=== PATIENT | male | born 1940 | race Caucasian/White ===

== ENCOUNTER 2020-03-06 10:36 | Outpatient (REF) | payer OTHER, SELFPAY ==
[2020-03-06 11:59] LABS: MANUAL DIFF FLAG NO
[2020-03-06 12:10] LABS: Basophils Absolute Auto 0.1 X10*3/uL (0.0-0.2); Basophils Percent Auto 0.9 % (0-2); Eosinophils Absolute Auto 0.1 X10*3/uL (0.0-0.4); Eosinophils Percent Auto 1.8 % (0-4); Hematocrit 43.4 % (42-52); Hemoglobin 14.2 g/dl (14.0-18.0); Imm Gran Abs Auto 0.02 X10*3/uL (0.00-0.03); Imm Gran Pct Auto 0.3 % (0.0-0.4); Lymphocytes Absolute Auto 1.5 X10*3/uL (1.2-4.9); Lymphocytes Percent Auto 23.6 % (20-40); Mean Corpuscular HGB Conc 32.7 g/dl (31.0-36.0); Mean Corpuscular Volume 94.8 fL (80-98); Monocytes Absolute Auto 0.4 X10*3/uL (0.1-1.2); Monocytes Percent Auto 6.1 % (2-11); Neutrophils Absolute Auto 4.4 X10*3/uL (2.0-8.3); Neutrophils Percent Auto 67.3 % (45-73); Platelet Count 341 X10*3/uL (160-400); Red Blood Count 4.58 X10*6/uL (4.60-5.80); Red Cell Distribution Width 12.8 % (11.0-16.0); White Blood Count 6.5 X10*3/uL (4.8-10.8)
[2020-03-06 12:57] LABS: Alanine Aminotransferase 20 U/L (0-40); Albumin Level 4.2 g/dL (3.5-5.0); Alkaline Phosphatase 119 U/L (39-117); Anion Gap 13 (12-20); Aspartate Amino Transferase 30 U/L (5-37); Blood Urea Nitrogen 15 mg/dL (9-16); Calcium 9.4 mg/dL (8.4-10.2); Carbon Dioxide 26 mmol/L (22-29); Chloride 106 mmol/L (96-108); Cholesterol 178 mg/dL; Estimated Glomerular Filt Rate > 60; Glucose Fasting 86 mg/dL (60-99); HDL Cholesterol 46 mg/dL; Potassium 4.4 mmol/l (3.3-5.1); Sodium 141 mmol/L (135-145); Total Protein 7.2 g/dL (6.5-8.0)
[2020-03-06 13:04] LABS: Folate 14.3 ng/mL (> or = 4.0); Vitamin B12 548 pg/mL (200-900)
[2020-03-06 13:07] LABS: LDL Cholesterol Calculated 99 mg/dl; Triglycerides 165 mg/dL
[2020-03-06 13:10] LABS: T4 Thyroxine 8.7 ug/dL (4.5-12.0); Thyroid Stimulating Hormone 1.77 mIU/mL (0.32-4.0)
== END 2020-03-06 10:37 | disposition home or self-care (01) ==
LOC: HO.LAB 10:36
PROVIDERS: PCP Internal Medicine; Visit Provider Internal Medicine
DX: Z00.00 Encounter for general adult medical examination without abnormal findings (principal); I10 Essential (primary) hypertension; E78.00 Pure hypercholesterolemia, unspecified; F41.9 Anxiety disorder, unspecified
CPT/HCPCS: 36415; 80053; 80061; 82607; 82746; 84436; 84443; 85025

== ENCOUNTER 2021-02-18 12:10 | Outpatient (REF) | payer OTHER, SELFPAY ==
[2021-02-18 12:28] LABS: MANUAL DIFF FLAG NO
[2021-02-18 12:54] LABS: Basophils Percent Auto 0.6 % (0-2); Eosinophils Absolute Auto 0.1 X10*3/uL (0.0-0.4); Eosinophils Percent Auto 1.9 % (0-4); Hematocrit 41.9 % (42-52); Hemoglobin 14.6 g/dl (14.0-18.0); Imm Gran Abs Auto 0.01 X10*3/uL (0.00-0.03); Imm Gran Pct Auto 0.2 % (0.0-0.4); Lymphocytes Absolute Auto 1.6 X10*3/uL (1.2-4.9); Lymphocytes Percent Auto 24.3 % (20-40); Mean Corpuscular HGB Conc 34.8 g/dl (31.0-36.0); Mean Corpuscular Hemoglobin 32.4 pg (27.0-33.0); Mean Corpuscular Volume 92.9 fL (80-98); Mean Platelet Volume 9.8 fL (9.4-12.4); Monocytes Absolute Auto 0.6 X10*3/uL (0.1-1.2); Monocytes Percent Auto 8.6 % (2-11); Neutrophils Absolute Auto 4.2 X10*3/uL (2.0-8.3); Neutrophils Percent Auto 64.4 % (45-73); Platelet Count 328 X10*3/uL (160-400); Red Blood Count 4.51 X10*6/uL (4.60-5.80); Red Cell Distribution Width 12.8 % (11.0-16.0); White Blood Count 6.4 X10*3/uL (4.8-10.8)
[2021-02-18 13:17] LABS: Alanine Aminotransferase 20 U/L (0-40); Albumin Level 4.3 g/dL (3.5-5.0); Alkaline Phosphatase 105 U/L (39-117); Anion Gap 12 (12-20); Aspartate Amino Transferase 28 U/L (5-37); Bilirubin Total 1.1 mg/dL (0.0-1.0); Blood Urea Nitrogen 14 mg/dL (9-16); Calcium 9.4 mg/dL (8.4-10.2); Carbon Dioxide 23 mmol/L (22-29); Chloride 108 mmol/L (96-108); Cholesterol 161 mg/dL; Estimated Glomerular Filt Rate > 60; Glucose Random 92 mg/dL (60-115); HDL Cholesterol 48 mg/dL; LDL Cholesterol Calculated 87 mg/dl; Potassium 4.4 mmol/L (3.3-5.1); Sodium 139 mmol/L (135-145); Total Protein 6.9 g/dL (6.5-8.0); Triglycerides 133 mg/dL
[2021-02-18 13:38] LABS: Free T4 (Free Thyroxine) 0.97 ng/dL (0.71-1.85); Thyroid Stimulating Hormone 1.81 uIU/mL (0.32-4.0)
[2021-02-18 14:02] LABS: Folate > 20.0 ng/mL (> or = 4.0); Vitamin B12 456 pg/mL (200-900)
== END 2021-02-18 12:11 | disposition home or self-care (01) ==
LOC: HO.LAB 12:10
PROVIDERS: Visit Provider Internal Medicine
DX: E78.00 Pure hypercholesterolemia, unspecified (principal); I10 Essential (primary) hypertension
CPT/HCPCS: 36415; 80053; 80061; 82607; 82746; 84439; 84443; 85025

== ENCOUNTER 2022-02-25 12:29 | Outpatient (REF) | payer OTHER, SELFPAY ==
[2022-02-25 13:52] LABS: Influenza A PCR NEGATIVE (Negative); Influenza B PCR NEGATIVE (Negative); Resp Syncy Virus RNA Qual PCR NEGATIVE (Negative); SARS COV2 PCR INHOUSE POSITIVE (Negative)
== END 2022-02-25 12:30 | disposition home or self-care (01) ==
LOC: HO.LAB 12:29
PROVIDERS: Visit Provider Internal Medicine
DX: R05.9 Cough, unspecified (principal); Z20.822 Contact with and (suspected) exposure to COVID-19
CPT/HCPCS: 0241U

== ENCOUNTER 2022-03-10 12:44 | Outpatient (REF) | payer OTHER, SELFPAY ==
--- NOTE | ~2022-03-10 | XR_ITS ---
EXAMINATION: XR SHOULDER, RIGHT CLINICAL INFORMATION: Pain COMPARISON: None TECHNIQUE: AP external rotation, Grashey, scapular Y, and axillary views of the right shoulder. FINDINGS: No fracture or dislocation. Arthritis at the glenohumeral and acromioclavicular joints with joint space narrowing and osteophyte formation. Normal soft tissues. XR/XR shoulder RT min 2V IMPRESSION: Arthritis.
--- NOTE | ~2022-03-10 | XR_ITS ---
EXAMINATION: XR LUMBOSACRAL SPINE CLINICAL INFORMATION: Pain COMPARISON: Previous x-ray from 2016 TECHNIQUE: Three views of the lumbosacral spine. FINDINGS: There is curvature of the lumbar sacral spine to the left. Bone alignment is otherwise normal. No fracture or dislocation. Multilevel degenerative disc disease and spondylosis greatest at L4-L5 and L5-S1. Lower lumbar spine facet arthritis. XR/XR lumbar spine 2-3V IMPRESSION: Scoliosis and degenerative changes.
== END 2022-03-10 12:45 | disposition home or self-care (01) ==
LOC: HO.XRAY 12:44
PROVIDERS: PCP Internal Medicine; Visit Provider Internal Medicine
DX: M25.511 Pain in right shoulder (principal); M54.50 Low back pain, unspecified; R05.9 Cough, unspecified
CPT/HCPCS: 72100; 73030

== ENCOUNTER 2022-04-06 16:00 | Outpatient (RCR) | payer OTHER, SELFPAY ==
--- NOTE | 2022-03-27 13:30 | MHC.PT.EP ---
[facility] [place] Office [place] [facility] [place] [facility] [address] Antoinette Brandt [address] [phone] F: [phone] F: [phone] F: [phone] F: [phone] Physical Therapy Plan of Care Date of Evaluation: Date of Surgery: N/A Diagnosis: low back pain (RC) Assessment: pt is a 81 y/o male presenting to physical therapy w/ referring diagnosis of low back pain, unspecified. Impairments include pain, decreased range of motion, decreased strength, impaired functional mobility, impaired postural awareness, and altered ambulation mechanics. pt is a good candidate for skilled PT due to age, potential remediation of impairments, typical disease/condition progression and prognosis, comorbidities, and motivation. pt would benefit from skilled PT intervention to provide a tailored strengthening and stretching exercise program, functional training, gait training, postural re-training, neuromuscular re-education, modalities as needed for pain, equipment safety demonstration. Frequency and Duration: The patient will be seen 2x/wk for 4 wks Short Term Goals: pt will be I w/ HEP to promote self-management of condition. pt will improve lumbar flexion by 25% to promote ease in lower body dressing. Penitentiary Goals: pt will report a statistically significant improvement in self-reported outcome measure, James, to promote return to PLOF. pt will improve R hip flexion strength to at least 4/5 to promote ease in navigating stairs and curbs. Treatment Plan: Modalities to reduce pain, spasms and effusion. Manual therapy to restore motion and function. Therapeutic exercise to improve strength and flexibility. Neuromuscular re-education for posture and balance. Therapeutic activities to return to functional activities of daily living. Electronically signed by: Yanely Lugo PT, DPT Please sign and return to therapist. Thank you for your referral.
--- NOTE | 2022-04-22 18:02 | MHC.PT.DC ---
[facility] [place] Office [place] Office [place] [facility] [address] Antoinette Brandt [address] [phone] F: [phone] F: [phone] F: [phone] F: [phone] Physical Therapy Discharge Report Diagnosis: low back pain (RC) Date of Surgery: N/A Date of Evaluation: 03/25/22 Date of Discharge: 04/22/22 Treatments to Date: 3 Cancellations to Date: 3 No Shows to Date: 0 Discharge Status: Independent with HEP Patient Elected to Stop Discharge Summary: The patient called to discharge himself as he does not feel comfortable driving himself to PT in the winter weather. He stated he feel confident with his ability to do his home exercise program by himself and feels they are adequate in managing his pain when he is compliant with them. He is discharged from this physical therapy plan of care per his request. Electronically signed by: Yanely Lugo PT, DPT Please sign and return to therapist. Thank you for your referral.
== END 2022-04-22 18:02 | disposition home or self-care (01) ==
LOC: HO.PT 16:00
PROVIDERS: PCP Internal Medicine; Visit Provider Internal Medicine
DX: M54.50 Low back pain, unspecified (principal)
CPT/HCPCS: 97110; 97162

== ENCOUNTER 2022-05-27 10:26 | Outpatient (REF) | payer OTHER, SELFPAY ==
[2022-05-27 10:53] LABS: MANUAL DIFF FLAG NO
[2022-05-27 11:27] LABS: Basophils Absolute Auto 0.1 X10*3/uL (0.0-0.2); Basophils Percent Auto 0.8 % (0-2); Eosinophils Absolute Auto 0.2 X10*3/uL (0.0-0.4); Eosinophils Percent Auto 1.9 % (0-4); Hemoglobin 14.5 g/dl (14.0-18.0); Imm Gran Abs Auto 0.03 X10*3/uL (0.00-0.03); Imm Gran Pct Auto 0.4 % (0.0-0.4); Lymphocytes Absolute Auto 1.8 X10*3/uL (1.2-4.9); Lymphocytes Percent Auto 22.7 % (20-40); Mean Corpuscular HGB Conc 33.7 g/dl (31.0-36.0); Mean Corpuscular Volume 94.9 fL (80.0-98.0); Mean Platelet Volume 9.8 fL (9.4-12.4); Monocytes Absolute Auto 0.6 X10*3/uL (0.1-1.2); Monocytes Percent Auto 7.9 % (2-11); Neutrophils Absolute Auto 5.2 x10*3/uL (2.0-8.3); Neutrophils Percent Auto 66.3 % (45-73); Platelet Count 370 X10*3/uL (160-400); Red Blood Count 4.53 X10*6/uL (4.60-5.80); Red Cell Distribution Width 13.4 % (11.0-16.0); White Blood Count 7.8 X10*3/uL (4.8-10.8)
[2022-05-27 12:17] LABS: Alanine Aminotransferase 36 U/L (0-40); Albumin Level 4.6 g/dL (3.5-5.0); Alkaline Phosphatase 133 U/L (39-117); Anion Gap 12 (12-20); Aspartate Amino Transferase 37 U/L (5-37); Bilirubin Total 1.1 mg/dL (0.0-1.0); Blood Urea Nitrogen 17 mg/dL (9-16); Carbon Dioxide 25 mmol/L (22-29); Chloride 108 mmol/L (96-108); Cholesterol 189 mg/dL; Estimated Glomerular Filt Rate > 60; Free T4 (Free Thyroxine) 1.35 ng/dL (0.71-1.85); Glucose Random 96 mg/dL (60-115); HDL Cholesterol 46 mg/dL; LDL Cholesterol Calculated 109 mg/dl; Potassium 4.4 mmol/L (3.3-5.1); Sodium 141 mmol/L (135-145); Total Protein 7.5 g/dL (6.5-8.0); Triglycerides 170 mg/dL
[2022-05-27 12:40] LABS: Folate > 20.0 ng/mL (> or = 4.0); Vitamin B12 562 pg/mL (200-900)
== END 2022-05-27 10:27 | disposition home or self-care (01) ==
LOC: HO.LAB 10:26
PROVIDERS: PCP Internal Medicine; Visit Provider Internal Medicine
DX: E78.00 Pure hypercholesterolemia, unspecified (principal); I10 Essential (primary) hypertension
CPT/HCPCS: 36415; 80053; 80061; 82607; 82746; 84439; 84443; 85025

== ENCOUNTER 2022-10-17 09:00 | Outpatient (REF) | payer OTHER, SELFPAY ==
[2022-10-17 09:17] LABS: MANUAL DIFF FLAG NO
[2022-10-17 10:12] LABS: Basophils Absolute Auto 0.1 X10*3/uL (0.0-0.2); Basophils Percent Auto 0.4 % (0-2); Eosinophils Percent Auto 0.1 % (0-4); Hematocrit 40.4 % (42.0-52.0); Hemoglobin 13.8 g/dl (14.0-18.0); Imm Gran Abs Auto 0.05 X10*3/uL (0.00-0.03); Imm Gran Pct Auto 0.4 % (0.0-0.4); Lymphocytes Absolute Auto 1.4 X10*3/uL (1.2-4.9); Mean Corpuscular HGB Conc 34.2 g/dl (31.0-36.0); Mean Corpuscular Hemoglobin 32.2 pg (27.0-33.0); Mean Corpuscular Volume 94.4 fL (80.0-98.0); Mean Platelet Volume 10.2 fL (9.4-12.4); Monocytes Absolute Auto 1.3 X10*3/uL (0.1-1.2); Monocytes Percent Auto 9.9 % (2-11); Neutrophils Absolute Auto 10.2 x10*3/uL (2.0-8.3); Neutrophils Percent Auto 78.2 % (45-73); Platelet Count 373 X10*3/uL (160-400); Red Blood Count 4.28 X10*6/uL (4.60-5.80); Red Cell Distribution Width 12.9 % (11.0-16.0)
[2022-10-17 10:19] LABS: Prothrombin Time 11.5 SEC (10.0-13.1)
[2022-10-17 10:21] LABS: Partial Thromboplastin Time 31.1 SEC (26.0-36.4)
[2022-10-17 10:40] LABS: Alanine Aminotransferase 23 U/L (0-40); Albumin Level 4.2 g/dL (3.5-5.0); Alkaline Phosphatase 115 U/L (39-117); Anion Gap 15 (12-20); Aspartate Amino Transferase 23 U/L (5-37); Bilirubin Total 1.4 mg/dL (0.0-1.0); Blood Urea Nitrogen 13 mg/dL (9-16); Calcium 9.8 mg/dL (8.4-10.2); Carbon Dioxide 24 mmol/L (22-29); Chloride 103 mmol/L (96-108); Estimated Glomerular Filt Rate > 60; Glucose Random 116 mg/dL (60-115); Potassium 4.1 mmol/L (3.3-5.1); Sodium 138 mmol/L (135-145); Total Protein 7.2 g/dL (6.5-8.0)
[2022-10-17 11:08] LABS: Folate 16.7 ng/mL (> or = 4.0); Free T4 (Free Thyroxine) 1.07 ng/dL (0.71-1.85); Thyroid Stimulating Hormone 1.14 uIU/mL (0.32-4.0); Vitamin B12 387 pg/mL (200-900)
== END 2022-10-17 09:01 | disposition home or self-care (01) ==
LOC: HO.LAB 09:00
PROVIDERS: PCP Internal Medicine; Visit Provider Internal Medicine
DX: Z12.5 Encounter for screening for malignant neoplasm of prostate (principal); R79.1 Abnormal coagulation profile; R32 Unspecified urinary incontinence; I10 Essential (primary) hypertension
CPT/HCPCS: 36415; 80053; 82607; 82746; 84153; 84439; 84443; 85025; 85610; 85611; 85730; 85732

== ENCOUNTER 2022-11-13 15:00 | Outpatient (RCR) | payer OTHER, SELFPAY | END 2022-12-02 15:33 | disposition home or self-care (01) | LOC: HO.PT 15:00 | PROVIDERS: PCP Internal Medicine; Visit Provider Orthopaedic Surgery | DX: R26.89 Other abnormalities of gait and mobility (principal); Z96.641 Presence of right artificial hip joint | CPT/HCPCS: 97110; 97161; 97530 ==

== ENCOUNTER 2022-11-29 00:45 | Emergency (ER) | payer OTHER, SELFPAY ==
[2022-11-29 00:59] VITALS: BP 142/84; PULSE 70; PULSE 82; RESP 20; TEMP 36.9; O2SAT 97; O2SAT 99; BMI 25.6
--- NOTE | 2022-11-29 02:52 | PC.NURSE ---
+pedal pulse to right foot. awaiting ED provider. no complaints at moment--resting comfortably.
--- NOTE | 2022-11-29 03:32 | ED.EXTPRO ---
HPI - Extremity Problem General Chief complaint: Extremity Problem Stated complaint: medical treatment, swollen leg Time Seen by Provider: 11/29/22 03:11 Source: patient Mode of arrival: EMS History of Present Illness HPI Narrative: 81-year-old male who had a right total hip replacement on Wednesday, went back to the surgical team on Wednesday for reassessment after concerns regarding swelling and redness. Patient is unsure of what imaging studies he had conducted and does report a underlying OCD condition. Patient states that he was told that there was no DVT and that the hip had not popped back out. Patient states that his leg looks terrible and that he is concerned that he may have a DVT. He denies any shortness of breath, fevers, chills, palpitations. Related Data Home Medications Medication Instructions Recorded Confirmed metronidazole 1 % topical gel 1 applic topical DAILY 03/14/20 06/05/22 (Metrogel) multivitamin 1 tab PO DAILY 03/14/20 06/05/22 Previous Rx's Medication Instructions Recorded albuterol sulfate 90 mcg/actuation 2 puff inhalation Q4-6H PRN 05/10/22 aerosol inhaler (ProAir HFA) bronchospasm #8.5 grams ibuprofen 200 mg capsule 600 mg PO Q8H PRN pain #60 caps 06/29/22 fluoxetine 20 mg capsule 40 mg PO DAILY #180 caps 07/09/22 simvastatin 40 mg tablet 40 mg PO DAILY #90 tabs 10/12/22 lorazepam 0.5 mg tablet (Ativan) 0.5 mg PO DAILY PRN anxiety 90 10/26/22 days #5 tabs Allergies Allergy/AdvReac Type Severity Reaction Status Date / Time doxycycline [DOXYCYCLINE] Allergy Unknown SWELLING Verified 06/05/22 14:59 Penicillins [PENICILLINS] Allergy Unknown RASH Verified 06/05/22 14:59 Sulfa (Sulfonamide Allergy Unknown RASH Verified 06/05/22 14:59 Antibiotics) [SULFA(SULFONAMIDE ANTIBIOTICS)] sulfacetamide Allergy Unknown unknown Verified 06/05/22 14:59 [From Sulfacet-R] sulfur [From Sulfacet-R] Allergy Unknown unknown Verified 06/05/22 14:59 Review of Systems Review of Systems: Pertinent positives and negatives as stated in HPI PMFSH Past Medical History Source: nursing notes reviewed Medical History Anxiety Asthma Hypercholesterolemia Hypertension Lower back pain Obsessive compulsive disorder Overweight (BMI 25.0-29.9) Surgical History H/O hernia repair Family History Family History Father No problems noted. Mother No problems noted. Social History Social History Housing: House Alcohol intake: never Patient Tobacco Use Status: Never used Tobacco Smoked in Last 30 Days: No e-Cigarette/Vaping Use: Never Used Second Hand Smoke Exposure: No Advance Directives: No Advance Directives Information Provided: Yes Current occupational status: retired Cognitive needs: No Hearing needs: No Vision needs: Yes Physical Exam Vital Signs: Vital Signs: Last Vital Signs Temp 98.4 F 11/29/22 00:59 Pulse 70 11/29/22 00:59 Resp 20 11/29/22 00:59 Pulse Ox 99 11/29/22 00:59 O2 Del Method Room Air 11/29/22 00:59 BMI result Body Mass Index 25.6 VITAL SIGNS: Reviewed. GENERAL: Well developed, well nourished, in no acute distress. HEAD: Normocephalic/atraumatic EYES: PERRLA, EOMI EARS: Ext canals without abnormality LUNGS: Normal breath sounds. No adventitious sounds or accessory muscle use. SpO2<99> CARDIOVASCULAR: Regular rate and rhythm without noted murmurs ABDOMEN: Soft, non-tender, non-distended with bowel sounds. MUSCULOSKELETAL: No tenderness, deformities, or effusions noted on gross inspection. EXTREMITIES: No cyanosis, clubbing or edema; RIGHT LOWER EXTREMITY: Surgical dressing is in place, there is dependent rubor and ecchymosis around the knee and distal leg, there is no warmth/induration. Pulses are palpable. SKIN: Inspection of the skin reveals no rashes NEUROLOGIC: Alert and oriented x 4. Strength and sensation to light touch were grossly intact x 4. Medical Decision Making Medical Decision Making MDM Narrative: 81-year-old male with history and clinical presentation consistent with OCD condition there is likely driving his re-evaluation here in the emergency room. Will proceed with the venous duplex although I have no clinical suspicion for underlying cellulitis or DVT at this time. There appears to be normal healing process, surgical dressing is intact and patient otherwise appears well. Pending venous duplex of right lower extremity. 0449: On review of ultrasound there is no evidence of acute DVT, patient was reassured and discharged home in stable condition. Differential Diagnosis Please see the discussion above Radiology Impression Radiologist Impression: No DVT, otherwise my interpretation is in agreement with radiology's impression. Discharge Plan Discharge Clinical Impression: Leg edema, right Patient Disposition: Home, Self-Care Instructions: Leg Edema (ED) Additional Instructions: 1. Resume all home medications as prescribed. 2. Please follow-up with your primary care provider next 2-3 days for re-evaluation further outpatient management. Return to the ER for any worsening symptoms. Prescriptions: No Action albuterol sulfate [ProAir HFA] 90 mcg/actuation HFA aerosol inhaler 2 puff inhalation Q4-6H PRN (Reason: bronchospasm) Qty: 8.5 0RF ibuprofen 200 mg capsule 600 mg PO Q8H PRN (Reason: pain) Qty: 60 0RF fluoxetine 20 mg capsule 40 mg PO DAILY Qty: 180 1RF simvastatin 40 mg tablet 40 mg PO DAILY Qty: 90 2RF lorazepam [Ativan] 0.5 mg tablet 0.5 mg PO DAILY PRN (Reason: anxiety) 90 Days Qty: 5 0RF multivitamin Tablet 1 tab PO DAILY metronidazole [Metrogel] 1 % gel 1 applic topical DAILY Referrals: Po,Arsalan Paniagua MD [Primary Care Provider] -
== END 2022-11-29 05:29 | disposition home or self-care (01) ==
PROVIDERS: Emergency Provider Student in an Organized Health Care Education/Training Program; PCP Internal Medicine
DX: R60.0 Localized edema (principal); Z79.899 Other long term (current) drug therapy
CPT/HCPCS: 93971; 99284

== ENCOUNTER 2022-11-30 18:34 | Emergency (ER) | payer OTHER, SELFPAY ==
[2022-11-30 18:44] VITALS: BP 154/70; PULSE 79; RESP 18; TEMP 36.8; O2SAT 98; BMI 25.8
--- NOTE | 2022-11-30 19:08 | MHC.EDTECH ---
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
--- NOTE | 2022-11-30 19:51 | ED.GENADULT ---
HPI - General Adult General Chief complaint: General Medical Stated complaint: R LEG SWELLING AFTER HIP REPLACMENT Time Seen by Provider: 11/30/22 18:46 Source: patient Mode of arrival: EMS Limitations: no limitations History of Present Illness HPI narrative: Patient is a 81-year-old male presents emergency department for evaluation of blisters to the top of his right foot. He had a recent right total hip replacement, he states he was seen here yesterday for evaluation of the swelling and redness to his right lower extremity. He states that he was told he did not have a DVT. However the blisters are new as of this morning which prompted his concern to come to the emergency department. Related Data Home Medications Medication Instructions Recorded Confirmed metronidazole 1 % topical gel 1 applic topical DAILY 03/14/20 06/05/22 (Metrogel) multivitamin 1 tab PO DAILY 03/14/20 06/05/22 Previous Rx's Medication Instructions Recorded albuterol sulfate 90 mcg/actuation 2 puff inhalation Q4-6H PRN 05/10/22 aerosol inhaler (ProAir HFA) bronchospasm #8.5 grams ibuprofen 200 mg capsule 600 mg PO Q8H PRN pain #60 caps 06/29/22 fluoxetine 20 mg capsule 40 mg PO DAILY #180 caps 07/09/22 simvastatin 40 mg tablet 40 mg PO DAILY #90 tabs 10/12/22 lorazepam 0.5 mg tablet (Ativan) 0.5 mg PO DAILY PRN anxiety 90 10/26/22 days #5 tabs Allergies Allergy/AdvReac Type Severity Reaction Status Date / Time doxycycline [DOXYCYCLINE] Allergy Unknown SWELLING Verified 11/30/22 18:54 Penicillins [PENICILLINS] Allergy Unknown RASH Verified 11/30/22 18:54 Sulfa (Sulfonamide Allergy Unknown RASH Verified 11/30/22 18:54 Antibiotics) [SULFA(SULFONAMIDE ANTIBIOTICS)] sulfacetamide Allergy Unknown unknown Verified 11/30/22 18:54 [From Sulfacet-R] sulfur [From Sulfacet-R] Allergy Unknown unknown Verified 11/30/22 18:54 Review of Systems Review of Systems: Constitutional: No fever, chills, weakness or fatigue. Skin: No rash or itching. Blistering to dorsal right foot Cardiovascular: No chest pain, chest pressure or chest discomfort. No palpitations Respiratory: No shortness of breath, cough or sputum production. Gastrointestinal: No nausea, vomiting or diarrhea. No abdominal pain Genitourinary: No burning micturition. No urinary frequency or incontinence. Musculoskeletal: Right lower extremity pain and swelling as per HPI Psychiatric: Positive anxiety. Yes all other systems are reviewed and are negative [facility] Past Medical History Attestation statement: The following information was validated with the patient. Source: old records reviewed Medical History Anxiety Asthma Hypercholesterolemia Hypertension Lower back pain Obsessive compulsive disorder Overweight (BMI 25.0-29.9) Surgical History H/O hernia repair Family History Family History Father No problems noted. Mother No problems noted. Social History Social History Housing: House Alcohol intake: never Patient Tobacco Use Status: Never used Tobacco e-Cigarette/Vaping Use: Never Used Second Hand Smoke Exposure: No Advance Directives: No Advance Directives Information Provided: No Current occupational status: retired Cognitive needs: No Hearing needs: No Vision needs: Yes Physical Exam ED Vital Signs: Vital Signs - 24 hr 11/30/22 18:44 Temperature 98.2 F Pulse Rate 79 Respiratory Rate 18 Blood Pressure 154/70 H Pulse Oximetry 98 Oxygen Delivery Method Room Air BMI result Body Mass Index 25.8 Appearance: Alert.?Oriented to person, place and time. Appears acutely anxious? Neck: Normal inspection.? Neck supple.?? CVS: Heart sounds normal. Normal heart rate and rhythm.? Pulses normal.?? Respiratory: No respiratory distress.? Lung sounds clear to auscultation bilaterally?? Abdomen: Soft and non-tender. Skin: Skin warm and dry.? Normal skin color.? Filled bullae to dorsal right foot without surrounding erythema or localized swelling Extremities: Right lower extremity ecchymosis, dependent edema from knee to distal leg without erythema or warmth. Neuro: Moves all extremities spontaneously. Sensation intact bilaterally. No focal neuro deficits. Ambulates with normal steady gait. Medical Decision Making Medical Decision Making MDM Narrative: Patient is a 81-year-old male with past medical history of anxiety, asthma, hypercholesterolemia, hypertension, OCD who presents to the emergency department for evaluation of blisters to the dorsal right foot. Patient had a right total hip replacement 11/25/2022, and has had multiple evaluations for swelling and redness to the right lower extremity Of note patient was seen in the emergency department less than 24 hours ago, he had a venous duplex ultrasound which revealed no evidence of acute DVT and he was discharged home. He presents here today with concern for the blisters to the dorsal aspect of his foot which appear to be likely a friction injury from his footwear. You reviewed not to intentionally ruptured the blisters, wound care management should they rupture. There is no acute concerns for cellulitis at this time. It appears as though his OCD is likely exacerbating his anxiety surrounding the appearance of his lower extremity. Advised outpatient follow-up with his orthopedic provider/PCP. Reviewed worrisome signs and symptoms that would warrant re-evaluation in the emergency department. All questions answered. Stable for discharge. Differential Diagnosis Differential Diagnoses: The differential diagnosis associated with the presentation includes (As noted above) External Record Review External record reviewed: Outpatient record Prescription Management I considered prescription management with: Antibiotic (Topical antibiotic should the blisters rupture) Discharge Plan Discharge Clinical Impression: Blister (nonthermal), right foot, initial encounter Patient Disposition: Home, Self-Care Instructions: Blister (ED) Additional Instructions: As discussed, please refrain from wearing footwear that may be irritating or painful to this area of your foot and that might increase the risk of the blisters popping. You can apply a bandage over them to protect the skin. If they pop open on their own, please cleanse them twice a day with warm water and mild non scented soap, and apply a topical bacitracin/antibiotic ointment to it If you develop pain, redness, pus-like drainage, swelling then this should be re-evaluated Please follow-up with your primary care/repeated provider. Prescriptions: No Action albuterol sulfate [ProAir HFA] 90 mcg/actuation HFA aerosol inhaler 2 puff inhalation Q4-6H PRN (Reason: bronchospasm) Qty: 8.5 0RF ibuprofen 200 mg capsule 600 mg PO Q8H PRN (Reason: pain) Qty: 60 0RF fluoxetine 20 mg capsule 40 mg PO DAILY Qty: 180 1RF simvastatin 40 mg tablet 40 mg PO DAILY Qty: 90 2RF lorazepam [Ativan] 0.5 mg tablet 0.5 mg PO DAILY PRN (Reason: anxiety) 90 Days Qty: 5 0RF multivitamin Tablet 1 tab PO DAILY metronidazole [Metrogel] 1 % gel 1 applic topical DAILY Referrals: Arsalan Almonte MD [Primary Care Provider] - Interventions: ED Discharge Assessment Last Done: 11/30/22 20:35 Discharge Date/Time: 11/30/22 20:36
== END 2022-11-30 20:36 | disposition home or self-care (01) ==
PROVIDERS: Emergency Provider Internal Medicine; PCP Internal Medicine
DX: S90.821A Blister (nonthermal), right foot, initial encounter (principal); R60.0 Localized edema; X58.XXXA Exposure to other specified factors, initial encounter; Y93.9 Activity, unspecified; Y92.9 Unspecified place or not applicable; Y99.9 Unspecified external cause status; Z79.899 Other long term (current) drug therapy
CPT/HCPCS: 99282

== ENCOUNTER 2023-03-23 11:06 | Outpatient (REF) | payer OTHER, SELFPAY ==
[2023-03-23 11:59] LABS: Appearance Urine Clear; Color Urine Dark Yellow; Glucose Urine UA Negative (Negative); Leukocyte Esterase Urine Trace (Negative); Nitrite Urine Negative (Negative); PH 5.5 (5.0-9.0); UMIC TRIGGER UACC YES; Urine Blood Negative (Negative); Urine Ketones 15 mg/dL (Negative); Urine Protein 30 (1+) mg/dL (Neg-Trace)
[2023-03-23 12:15] LABS: Bacteria Urine None Seen (None Seen); RBC Urine 0-2 /HPF (0-2); Squamous Epithelial Cell Urine 0-2 /HPF (0-2); WBC Urine 0-5 /HPF (0-5)
== END 2023-03-23 11:07 | disposition home or self-care (01) ==
LOC: HO.LAB 11:06
PROVIDERS: PCP Internal Medicine; Visit Provider Internal Medicine
DX: R30.0 Dysuria (principal); R35.0 Frequency of micturition
CPT/HCPCS: 81001

== ENCOUNTER 2023-04-20 02:27 | Emergency (ER) | payer OTHER, SELFPAY ==
--- NOTE | ~2023-04-20 | XR_ITS ---
EXAMINATION: XR CHEST CLINICAL INFORMATION: Cough COMPARISON: None available. TECHNIQUE: 2 views of the chest were obtained. FINDINGS: Lungs appear somewhat hyperinflated. No focal consolidation is seen. No evidence of pneumothorax, pleural effusion, or pulmonary edema. Cardiac size is within normal limits. The thoracic aorta is tortuous. Degenerative endplate changes in the spine. XR/XR chest 2V IMPRESSION: No acute cardiopulmonary findings.
[2023-04-20 02:34] VITALS: BP 169/80; PULSE 79; RESP 20; TEMP 36.7; O2SAT 97; BMI 27.1
[2023-04-20 03:23] LABS: Influenza A PCR NEGATIVE (Negative); Influenza B PCR NEGATIVE (Negative); Resp Syncy Virus RNA Qual PCR NEGATIVE (Negative); SARS COV2 PCR INHOUSE NEGATIVE (Negative)
[2023-04-20 03:28] VITALS: BP 164/67; PULSE 71; RESP 17; TEMP 36.8; O2SAT 99
--- NOTE | 2023-04-20 04:57 | ED.SOB ---
HPI - SOB/Dyspnea General Chief Complaint: Dyspnea Stated Complaint: difficulty breathing ? Time Seen by Provider: 04/20/23 04:56 Source: patient Mode of arrival: ambulatory Limitations: no limitations History of Present Illness HPI Narrative: Patient history of asthma and coughing for last few days feels sore bilateral lower ribs no fever no chills cough is mostly dry does not have an inhaler at home Related Data Home Medications Medication Instructions Recorded Confirmed metronidazole 1 % topical gel 1 applic topical DAILY 03/14/20 06/05/22 (Metrogel) multivitamin 1 tab PO DAILY 03/14/20 06/05/22 Previous Rx's Medication Instructions Recorded albuterol sulfate 90 mcg/actuation 2 puff inhalation Q4-6H PRN 05/10/22 aerosol inhaler (ProAir HFA) bronchospasm #8.5 grams ibuprofen 200 mg capsule 600 mg (3 x 200 mg) PO Q8H PRN 06/29/22 pain #60 caps fluoxetine 20 mg capsule 40 mg (2 x 20 mg) PO DAILY #180 01/18/23 caps simvastatin 40 mg tablet 40 mg PO DAILY #90 tabs 01/18/23 lorazepam 0.5 mg tablet (Ativan) 0.5 mg PO DAILY PRN anxiety 90 03/26/23 days #5 tabs albuterol sulfate 90 mcg/actuation 2 puff inhalation Q4-6H PRN 04/20/23 aerosol inhaler (ProAir HFA) shortness of breath or wheezing #8.5 grams Allergies Allergy/AdvReac Type Severity Reaction Status Date / Time doxycycline [DOXYCYCLINE] Allergy Unknown SWELLING Verified 11/30/22 18:54 Penicillins [PENICILLINS] Allergy Unknown RASH Verified 11/30/22 18:54 Sulfa (Sulfonamide Allergy Unknown RASH Verified 11/30/22 18:54 Antibiotics) [SULFA(SULFONAMIDE ANTIBIOTICS)] sulfacetamide Allergy Unknown unknown Verified 11/30/22 18:54 [From Sulfacet-R] sulfur [From Sulfacet-R] Allergy Unknown unknown Verified 11/30/22 18:54 Review of Systems Review of Systems: Yes all other systems are reviewed and are negative PMFSH Past Medical History Medical History Lower back pain Asthma Obsessive compulsive disorder Overweight (BMI 25.0-29.9) Anxiety Hypercholesterolemia Hypertension Surgical History H/O hernia repair Family History Family History Father No problems noted. Mother No problems noted. Social History Social History Housing: House Alcohol intake: never Patient Tobacco Use Status: Never used Tobacco e-Cigarette/Vaping Use: Never Used Second Hand Smoke Exposure: No Advance Directives: No Advance Directives Information Provided: Yes Current occupational status: retired Cognitive needs: No Hearing needs: No Vision needs: Yes Physical Exam Vital Signs: Vital Signs: Last Vital Signs Temp 98.2 F 04/20/23 03:28 Pulse 71 04/20/23 03:28 Resp 17 04/20/23 03:28 BP 164/67 H 04/20/23 03:28 Pulse Ox 99 04/20/23 03:28 O2 Del Method Room Air 04/20/23 03:28 BMI result Body Mass Index 27.1 Appearance: Alert. Oriented X3. No acute distress. Eyes: PERRLA, No Nystagmus ENT: Pharynx normal. Oral Mucosa moist Neck: Normal inspection. Neck supple. CVS: Normal heart rate and rhythm. Pulses normal. Respiratory: No respiratory distress. Equal air entry bilateral, no wheezing/rales/rhonchi Abdomen: Soft and nontender. Bowel sounds are present, no mass palpable, no CVA tenderness Skin: Skin warm and dry. Normal skin color. Normal skin turgor. Extremities: No lower extremity edema. No calf tenderness Neuro: Oriented X 3. No motor deficit. Medical Decision Making Differential Diagnosis Differential Diagnoses: The differential diagnosis associated with the presentation includes Asthma/bronchitis/muscular pain Lab Data MDM Lab Attestation statement: I reviewed the patient's lab results. Labs: Lab Results 04/20/23 Range/Units 02:41 Influenza Type A (PCR) NEGATIVE (Negative) Influenza Type B (PCR) NEGATIVE (Negative) RSV RNA Qual (PCR) NEGATIVE (Negative) SARS-CoV-2 RNA (RT-PCR) NEGATIVE (Negative) Independent Interpretation I performed an independent interpretation of an: Plain X-Ray Radiology Impression Discussion of test interpretation with radiology: I have reviewed the radiologist's reading. Discharge Plan Discharge Clinical Impression: Acute asthmatic bronchitis Patient Disposition: Home, Self-Care Instructions: Acute Bronchitis (ED) Additional Instructions: Use inhaler 2 puffs as needed every 4-6 hours especially when you coughing a lot Prescriptions: New albuterol sulfate [ProAir HFA] 90 mcg/actuation HFA aerosol inhaler 2 puff inhalation Q4-6H PRN (Reason: shortness of breath or wheezing) Qty: 8.5 0RF No Action albuterol sulfate [ProAir HFA] 90 mcg/actuation HFA aerosol inhaler 2 puff inhalation Q4-6H PRN (Reason: bronchospasm) Qty: 8.5 0RF ibuprofen 200 mg capsule 600 mg PO Q8H PRN (Reason: pain) Qty: 60 0RF simvastatin 40 mg tablet 40 mg PO DAILY Qty: 90 2RF fluoxetine 20 mg capsule 40 mg PO DAILY Qty: 180 1RF lorazepam [Ativan] 0.5 mg tablet 0.5 mg PO DAILY PRN (Reason: anxiety) 90 Days Qty: 5 0RF multivitamin Tablet 1 tab PO DAILY metronidazole [Metrogel] 1 % gel 1 applic topical DAILY Interventions: ED Discharge Assessment Last Done: 04/20/23 05:38 Discharge Date/Time: 04/20/23 05:39
== END 2023-04-20 05:39 | disposition home or self-care (01) ==
PROVIDERS: Emergency Provider Internal Medicine; PCP Internal Medicine
DX: J45.998 Other asthma (principal); Z20.822 Contact with and (suspected) exposure to COVID-19; Z20.828 Contact with and (suspected) exposure to other viral communicable diseases; I10 Essential (primary) hypertension; E78.00 Pure hypercholesterolemia, unspecified; Z79.02 Long term (current) use of antithrombotics/antiplatelets; Z79.899 Other long term (current) drug therapy
CPT/HCPCS: 0241U; 71046; 99283

== ENCOUNTER 2023-06-09 12:56 | Outpatient (AMB) | payer OTHER, SELFPAY ==
[2023-06-09 13:12] VITALS: BP 146/92; PULSE 75; O2SAT 95; BMI 25.4
--- NOTE | 2023-06-09 13:12 | A.OFFPC_ITS ---
Vital Signs 06/09/23 13:12 Height 5 ft Weight 130 lb BMI 25.4 BP 146/92 H Blood Pressure Location Lt brachial Position Sitting Pulse 75 Pulse Source Pulse Oximeter Pulse Oximetry (%) 95 Oxygen Delivery Method Room Air Intake Visit Reasons: Annual Exam Allergies doxycycline [DOXYCYCLINE] Allergy (Unknown, Verified 06/09/23 13:13) SWELLING Penicillins [PENICILLINS] Allergy (Unknown, Verified 06/09/23 13:13) RASH Sulfa (Sulfonamide Antibiotics) [SULFA(SULFONAMIDE ANTIBIOTICS)] Allergy (Unknown, Verified 06/09/23 13:13) RASH sulfacetamide [From Sulfacet-R] Allergy (Unknown, Verified 06/09/23 13:13) unknown sulfur [From Sulfacet-R] Allergy (Unknown, Verified 06/09/23 13:13) unknown Medication List - Last Reconciled 06/09/23 by Arsalan Almonte MD albuterol sulfate 90 mcg/actuation (ProAir HFA) 2 puffs inhalation Q4-6H PRN fluoxetine 40 mg (2 x 20 mg) PO DAILY lorazepam (Ativan) 0.5 mg PO DAILY PRN 90 days metronidazole 1% (Metrogel) 1 appl topical DAILY multivitamin 1 tab PO DAILY simvastatin 40 mg PO DAILY Tobacco use date assessed: 06/09/23 Fall risk assessment: No Falls in past year Last assessed Fall Risk: 06/09/23 Dental Screening Dental Screen Date: 06/09/23 Did you have a dental visit in the last 12 months?: Yes Did you have a dental problem in the last 6 months where you did not have access to dental care?: No Was dental information given to patient?: Patient has dentist HPI Annual Exam HPI Details 82-year-old male with a history of lumba r degenerative disc disease hypertension hypercholesterolemia generalized anxiety disorder asthma and arthritis coming in for physical exam last seen in May 2022. ER visit March 2023 for asthma cough treated for asthmatic bronchitis with inhaler. Patient was in the hospital 03/16/2023 left total hip arthroplasty under Dr. Martinez. Record received RSV COVID-19 and flu shot. Patient also follows up with Dermatology with the rosacea metronidazole. November 2022 ER visit for right foot blister. BP is good [facility] Medical History Lower back pain Asthma Obsessive compulsive disorder Overweight (BMI 25.0-29.9) Anxiety Hypercholesterolemia Hypertension Surgical History (Updated 06/09/23 @ 14:03 by Arsalan Almonte MD) History of left hip replacement Status post total hip replacement, right H/O hernia repair Family History (Updated 06/09/23 @ 13:14 by Radha Freire CMA) Father No problems noted. Mother No problems noted. Social History Housing: House Alcohol intake: never Patient Tobacco Use Status: Never used Tobacco e-Cigarette/Vaping Use: Never Used Second Hand Smoke Exposure: No Current occupational status: retired Cognitive needs: No Hearing needs: No Vision needs: Yes Questionnaire PHQ-9 Over the last 2 weeks, how often have you been bothered by any of the following problems? 1. Little interest or pleasure in doing things: not at all 2. Feeling down, depressed, or hopeless: not at all 3. Trouble falling or staying asleep, or sleeping too much: not at all 4. Feeling tired or having little energy: not at all 5. Poor appetite or overeating: not at all 6. Feeling bad about yourself - or that you are a failure or have let yourself or your family down: not at all 7. Trouble concentrating on things, such as reading the newspaper or watching television: not at all 8. Moving or speaking so slowly that other people could have noticed. Or the opposite - being so fidgety or restless that you have been moving around a lot more than usual: not at all 9. Thoughts that you would be better off or of hurting yourself in some way: not at all Total score: 0 Depression Screening Interpretation: Negative Depression Screening Done: Yes 85347 - PHQ-9 Billing: Yes Source: Developed by Drs. Wilfred Olivares, Odalys Roca, Cali Rothman and colleagues, with an educational natalie from [employer]. Thrive Questionnaire Date Thrive assessed: 06/09/23 I am a: Patient What is your living situation today?: I have a steady place to live Within the past 12 months, did the food you bought not last and you didn't have the money to get more?: Never true Within the past 12 months, did you worry whether your food would run out before you got money to buy more?: Never true Do you have trouble paying for medicines?: No Do you have trouble getting transportation to medical appointments?: No Do you have trouble paying your heating and electricity bill?: No Do you have trouble taking care of your child, family member or friend?: No Do you have trouble with day-to-day activities such as bathing, preparing meals, shopping, managing finances, etc.?: No Are you currently unemployed and looking for a job?: No Are you interested in more education?: No AUDIT C Alcohol Use Questionnaire (AUDIT-C) 1. How often do you have a drink containing alcohol?: Never 2. How many drinks containing alcohol do you have on a typical day when you are drinking?: 1 or 2 (0) 3. How often do you have six or more drinks on one occasion?: Never Total Score: 0 Score Reviewed/Action Taken: No BROOKE-7 AMB Questionnaire BROOKE-7 Date BROOKE - 7 assessed: 06/09/23 Feeling nervous, anxious, or on edge: 0 = Not at all Not being able to stop or control worryin = Not at all Worrying too much about different things: 0 = Not at all Trouble relaxin = Not at all Being so restless that it is hard to sit still: 0 = Not at all Becoming easily annoyed or irritable: 0 = Not at all Feeling afraid as if something awful might happen: 0 = Not at all Total BROOKE-7 score (0-4 normal; 5-9 mild; 10-14 moderate; 15-21 severe): 0 Source: Developed by Drs. Wilfred Olivares, Odalys Roca, Cali Rothman and colleagues, with an educational natalie from [employer]. BROKOE-7 Assessment Billing BROOKE-7 Assessment Tool: BROOKE-7 Assessment 73082 Review of Systems Const Denies poor appetite and Denies weakness Eyes Denies no additional complaints ENT Reports Normal hearing present, Denies dizziness, Denies nasal congestion, Denies tinnitus and Denies sore throat Card Denies chest pain, Denies syncope, Denies rapid heart rate and Denies dyspnea Resp Denies cough and Denies dyspnea GI Denies change in stool character, Reports constipation, Denies diarrhea, Denies nausea and Denies vomiting Denies dysuria and Denies urinary frequency Neuro Reports Normal hearing present, Denies confusion, Denies dizziness, Denies syncope and Denies weakness Psych Denies confusion Physical exam (Primary Care) Vital Signs: Last Vital Signs Pulse 75 06/09/23 13:12 BP 146/92 H 06/09/23 13:12 Pulse Ox 95 06/09/23 13:12 Oxygen Delivery Method Room Air 06/09/23 13:12 BMI result Body Mass Index 25.4 Tobacco/Smoking Status: Tobacco use Status Tobacco use date assessed 06/09/23 06/09/23 13:19 Patient Tobacco Use Status Never used Tobacco 06/09/23 13:19 e-Cigarette/Vaping Use Never Used 06/09/23 13:19 PHQ-9: PHQ-9 Score PHQ-9: Total score 0 06/09/23 13:19 Depression Screening Interpretation: Negative Thrive Assessment: Date of Thrive Assessment Date Thrive assessed 06/09/23 06/09/23 13:19 Const General: No confusion Orientation/consciousness: No confusion HENMT Head: Yes normocephalic Ears: external ears normal and TM's normal bilaterally Face and sinus: Yes normal facial exam Mouth: moist mucous membranes Throat: Yes tonsils normal Eyes Conjunctivae: conjunctivae normal Pupils: Equal, round and reactive pupils present and Pupil accommodation reflex normal Direct Ophthalmoscopy: normal light reflex Neck Neck: No lymphadenopathy Thyroid: Thyroid normal Chest Chest palpation & inspection: normal inspection of the chest Resp Effort & Inspection: normal respiratory effort and no audible wheezes Auscultation: clear to auscultation bilaterally, no crackles, no wheezes and lung sounds not diminished Cardio Rate: regular rate Rhythm: regular rhythm Peripheral pulses: radial pulses present and dorsalis pedis present GI Other: guaiac neg prostate N Palpation (GI): no masses Auscultation: normal bowel sounds and normoactive bowel sounds Male General Exam: Yes normal external exam Skin General skin exam: no rashes or lesions noted Rashes: no rashes Neuro General: No confusion Cranial nerves: Yes Equal, round and reactive pupils present and Yes Normal hearing present Cognition (Neuro): normal cognition Gait exam (Neuro): Normal gait present Motor exam (neuro): 5/5 motor strength present throughout Deep tendon reflexes (DTR's): Right brachioradialis reflex intensity grade: 2+, Left brachioradialis reflex intensity grade: 2+, Right patellar reflex intensity grade: 2+ and Left patellar reflex intensity grade: 2+ Extrem General: No edema Assessment and Plan Assessment & Plan (1) Status post total hip replacement, right: Comment: November 2022 Code(s): Z96.641 - Presence of right artificial hip joint Plan: Patient continues to follow-up with orthopedics keep active (2) Annual physical exam: Code(s): Z00.00 - Encounter for general adult medical examination without abnormal findings (3) Hypertension: Code(s): I10 - Essential (primary) hypertension Qualifiers: Hypertension type: essential hypertension Qualified Code(s): I10 - Essential (primary) hypertension Plan: Advised continue monitoring blood pressure at home (4) Hypercholesterolemia: Code(s): E78.00 - Pure hypercholesterolemia, unspecified Plan: Avoid fried foods, chicken skin, eggs, butter margarine, pastries and meat. Be it pork or beef they have a lot of cholesterol LDL goal of less than 130 and triglyceride of less than 150. Patient on simvastatin 40 mg once a day (5) Asthma: Code(s): J45.909 - Unspecified asthma, uncomplicated Plan: Stable continue with the inhaler as needed (6) Generalized anxiety disorder: Code(s): F41.1 - Generalized anxiety disorder Plan: Continue with present medication. (7) History of left hip replacement: Comment: 03/16/2023 Dr. Martinez Code(s): Z96.642 - Presence of left artificial hip joint Orders: Orders Comprehensive Met. Panel Today E78.00 - Pure hypercholesterolemia, unspecified Complete Blood Count Auto Diff Today E78.00 - Pure hypercholesterolemia, unspecified Thyroid Stimulating Hormone Today E78.00 - Pure hypercholesterolemia, unspecified Lipid Panel Today E78.00 - Pure hypercholesterolemia, unspecified Reticulocyte Count Today E78.00 - Pure hypercholesterolemia, unspecified IRON PROFILE Today E78.00 - Pure hypercholesterolemia, unspecified Free T4 (Free Thyroxine) Today E78.00 - Pure hypercholesterolemia, unspecified Vitamin B12 and Folate Today E78.00 - Pure hypercholesterolemia, unspecified Ferritin Today E78.00 - Pure hypercholesterolemia, unspecified Coding Level of Care Code Est Pt Prev Care >65y(08538) Diagnoses Status post total hip replacement, right Z96.641 Annual physical exam Z00.00 Essential hypertension I10 Hypertension type: essential hypertension Hypercholesterolemia E78.00 Asthma J45.909 Generalized anxiety disorder F41.1 History of left hip replacement Z96.642 Additional Codes BROOKE-7 Assessment Billing - BROOKE-7 Assessment Tool: BROOKE-7 Assessment [id number] ([id number])
== END 2023-06-09 14:24 | disposition home or self-care (01) ==
PROVIDERS: Visit Provider Internal Medicine
DX: Z00.00 Encounter for general adult medical examination without abnormal findings (principal); Z96.641 Presence of right artificial hip joint; I10 Essential (primary) hypertension; E78.00 Pure hypercholesterolemia, unspecified; J45.909 Unspecified asthma, uncomplicated; F41.1 Generalized anxiety disorder; Z96.642 Presence of left artificial hip joint
CPT/HCPCS: 99397

== ENCOUNTER 2023-06-10 12:22 | Outpatient (REF) | payer OTHER, SELFPAY ==
[2023-06-10 12:39] LABS: MANUAL DIFF FLAG NO
[2023-06-10 12:56] LABS: Basophils Absolute Auto 0.1 X10*3/uL (0.0-0.2); Basophils Percent Auto 0.7 % (0-2); Eosinophils Absolute Auto 0.1 X10*3/uL (0.0-0.4); Eosinophils Percent Auto 0.7 % (0-4); Hematocrit 39.9 % (42.0-52.0); Hemoglobin 13.3 g/dl (14.0-18.0); Imm Gran Abs Auto 0.05 X10*3/uL (0.00-0.03); Imm Gran Pct Auto 0.4 % (0.0-0.4); Immature Retic Fraction 11.9 % (2.3-13.4); Lymphocytes Absolute Auto 1.8 X10*3/uL (1.2-4.9); Lymphocytes Percent Auto 14.4 % (20-40); Mean Corpuscular HGB Conc 33.3 g/dl (31.0-36.0); Mean Platelet Volume 9.9 fL (9.4-12.4); Monocytes Absolute Auto 0.8 X10*3/uL (0.1-1.2); Monocytes Percent Auto 6.7 % (2-11); Neutrophils Absolute Auto 9.3 x10*3/uL (2.0-8.3); Neutrophils Percent Auto 77.1 % (45-73); Platelet Count 381 X10*3/uL (160-400); Red Blood Count 4.29 X10*6/uL (4.60-5.80); Red Cell Distribution Width 14.2 % (11.0-16.0); Retic HGB Equivalent 35.7 pg (30.0-35.0); Reticulocyte Percent 1.4 % (0.5-1.8); White Blood Count 12.1 X10*3/uL (4.8-10.8)
[2023-06-10 14:15] LABS: Alanine Aminotransferase 16 U/L (0-40); Albumin Level 4.1 g/dL (3.5-5.0); Alkaline Phosphatase 123 U/L (39-117); Anion Gap 11 (12-20); Aspartate Amino Transferase 25 U/L (5-37); Bilirubin Total 0.5 mg/dL (0.0-1.0); Blood Urea Nitrogen 13 mg/dL (9-16); Calcium 9.7 mg/dL (8.4-10.2); Carbon Dioxide 28 mmol/L (22-29); Chloride 107 mmol/L (96-108); Cholesterol 190 mg/dL (<200); Estimated Glomerular Filt Rate > 60; Glucose Random 97 mg/dL (60-115); HDL Cholesterol 50 mg/dL (>40); Iron 54 mcg/dL (45-160); LDL Cholesterol Calculated 113 mg/dL (<100); Percent Iron Saturation 18 % (15-50); Potassium 3.9 mmol/L (3.3-5.1); Sodium 142 mmol/L (135-145); Total Iron Binding Capacity 298 mcg/dL (228-428); Total Protein 7.4 g/dL (6.5-8.0); Triglycerides 139 mg/dL (<150); Unsaturated Iron Binding 244 ug/dL
[2023-06-10 14:18] LABS: Folate 12.2 ng/mL (> or = 4.0); Vitamin B12 466 pg/mL (200-900)
[2023-06-10 14:23] LABS: Ferritin 148 ng/mL (20-250); Free T4 (Free Thyroxine) 0.99 ng/dL (0.71-1.85); Thyroid Stimulating Hormone 2.45 uIU/mL (0.32-4.0)
== END 2023-06-10 12:23 | disposition home or self-care (01) ==
LOC: HO.LAB 12:22
PROVIDERS: PCP Internal Medicine; Visit Provider Internal Medicine
DX: E78.00 Pure hypercholesterolemia, unspecified (principal)
CPT/HCPCS: 36415; 80053; 80061; 82607; 82728; 82746; 83540; 84439; 84443; 85025; 85045

== ENCOUNTER 2023-12-09 13:02 | Outpatient (AMB) | payer OTHER, SELFPAY ==
[2023-12-09 13:06] VITALS: BP 152/82; PULSE 77; O2SAT 98; BMI 27.7
--- NOTE | 2023-12-09 13:06 | A.OFFPC_ITS ---
Vital Signs 12/09/23 13:06 12/09/23 13:16 Height 4 ft 11 in Weight 137 lb BMI 27.7 BP 152/82 H 146/80 H Blood Pressure Location Lt brachial Lt brachial Position Sitting Sitting Pulse 77 Pulse Source Pulse Oximeter Pulse Oximetry (%) 98 Oxygen Delivery Method Room Air Intake Visit Reasons: cholesterol Allergies doxycycline [DOXYCYCLINE] Allergy (Unknown, Verified 12/09/23 13:06) SWELLING Penicillins [PENICILLINS] Allergy (Unknown, Verified 12/09/23 13:06) RASH Sulfa (Sulfonamide Antibiotics) [SULFA(SULFONAMIDE ANTIBIOTICS)] Allergy (Unknown, Verified 12/09/23 13:06) RASH sulfacetamide [From Sulfacet-R] Allergy (Unknown, Verified 12/09/23 13:06) unknown sulfur [From Sulfacet-R] Allergy (Unknown, Verified 12/09/23 13:06) unknown Tobacco use date assessed: 06/09/23 Fall risk assessment: No Falls in past year Last assessed Fall Risk: 12/09/23 Dental Screening Dental Screen Date: 06/09/23 HPI cholesterol HPI Details 82 year old male with a history of hyper tension, hypercholesterolemia asthma generalized anxiety disorder with a history of bilateral hip replacement coming in for follow-up. Last seen for physical exam in 06/12/2023. 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 Mother No problems noted. Social History Housing: House Alcohol intake: never Patient Tobacco Use Status: Never used Tobacco e-Cigarette/Vaping Use: Never Used Second Hand Smoke Exposure: No Current occupational status: retired Cognitive needs: No Hearing needs: No Vision needs: Yes Questionnaire PHQ-9 Over the last 2 weeks, how often have you been bothered by any of the following problems? 1. Little interest or pleasure in doing things: not at all 2. Feeling down, depressed, or hopeless: not at all 3. Trouble falling or staying asleep, or sleeping too much: not at all 4. Feeling tired or having little energy: not at all 5. Poor appetite or overeating: not at all 6. Feeling bad about yourself - or that you are a failure or have let yourself or your family down: not at all 7. Trouble concentrating on things, such as reading the newspaper or watching television: not at all 8. Moving or speaking so slowly that other people could have noticed. Or the opposite - being so fidgety or restless that you have been moving around a lot more than usual: not at all 9. Thoughts that you would be better off or of hurting yourself in some way: not at all Total score: 0 Depression Screening Interpretation: Negative Depression Screening Done: Yes 18098 - PHQ-9 Billing: Yes Source: Developed by Drs. Wilfred Olivares, Odalys Roca, Cali Rothman and colleagues, with an educational natalie from [employer]. Thrive Questionnaire Date Thrive assessed: 06/09/23 AUDIT C Alcohol Use Questionnaire (AUDIT-C) 1. How often do you have a drink containing alcohol?: Never 2. How many drinks containing alcohol do you have on a typical day when you are drinking?: 1 or 2 (0) 3. How often do you have six or more drinks on one occasion?: Never Total Score: 0 Score Reviewed/Action Taken: No BROOKE-7 AMB Questionnaire BROOKE-7 Date BROOKE - 7 assessed: 06/09/23 Source: Developed by Drs. Wilfred Olivares, Cail Barrett and colleagues, with an educational natalie from [employer]. Physical exam (Primary Care) Vital Signs: Last Vital Signs Pulse 77 12/09/23 13:06 BP 152/82 H 12/09/23 13:06 Pulse Ox 98 12/09/23 13:06 Oxygen Delivery Method Room Air 12/09/23 13:06 BMI result Body Mass Index 27.7 Tobacco/Smoking Status: Tobacco use Status Tobacco use date assessed 06/09/23 12/09/23 13:09 Patient Tobacco Use Status Never used Tobacco 12/09/23 13:09 e-Cigarette/Vaping Use Never Used 12/09/23 13:09 PHQ-9: PHQ-9 Score PHQ-9: Total score 0 12/09/23 13:09 Depression Screening Interpretation: Negative Thrive Assessment: Date of Thrive Assessment Date Thrive assessed 06/09/23 12/09/23 13:09 Const General: alert; No acute distress Eyes Conjunctivae: conjunctivae normal Resp Auscultation: clear to auscultation bilaterally Cardio Rate: regular rate Rhythm: regular rhythm GI Inspection: Yes normal to inspection Extrem General: Yes normal to inspection and No edema Assessment and Plan Assessment & Plan (1) Hypercholesterolemia: Code(s): E78.00 - Pure hypercholesterolemia, unspecified Plan: Avoid fried foods, chicken skin, eggs, butter margarine, pastries and meat. Be it pork or beef they have a lot of cholesterol LDL goal of less than 130 and triglyceride of less than 150 (2) Asthma: Code(s): J45.909 - Unspecified asthma, uncomplicated Plan: Continue with the albuterol as needed (3) Osteoarthritis, hip, bilateral: Comment: Status post hip replacement left 03/12/2023, right November 2022 Code(s): M16.0 - Bilateral primary osteoarthritis of hip Plan: Keep active keep well hydrated. (4) Anemia: Code(s): D64.9 - Anemia, unspecified Plan: Continuing to monitor (5) Generalized anxiety disorder: Code(s): F41.1 - Generalized anxiety disorder Plan: Continue with therapy (6) White coat syndrome with high blood pressure but without hypertension: Code(s): R03.0 - Elevated blood-pressure reading, without diagnosis of hypertension Plan: continue to monitor Blood pressure for now. low salt diet (7) Eczema: Code(s): L30.9 - Dermatitis, unspecified Plan: PAtient was prescribed steroid cream - cautioned on no longer than 2 weeks Orders: Orders Reticulocyte Count Today D64.9 - Anemia, unspecified Complete Blood Count Auto Diff Today D64.9 - Anemia, unspecified Free T4 (Free Thyroxine) Today D64.9 - Anemia, unspecified Lipid Panel Today D64.9 - Anemia, unspecified, E78.00 - Pure hypercholesterolemia, unspecified Vitamin B12 and Folate Today D64.9 - Anemia, unspecified Thyroid Stimulating Hormone Today D64.9 - Anemia, unspecified Ferritin Today D64.9 - Anemia, unspecified IRON PROFILE Today D64.9 - Anemia, unspecified Coding Level of Care Code Est Pt Level 4 (95970) Diagnoses Hypercholesterolemia E78.00 Asthma J45.909 Osteoarthritis, hip, bilateral M16.0 Anemia D64.9 Generalized anxiety disorder F41.1 White coat syndrome with high blood pressure but without hypertension R03.0 Eczema L30.9
[2023-12-09 13:16] VITALS: BP 146/80
== END 2023-12-09 13:31 | disposition home or self-care (01) ==
PROVIDERS: PCP Internal Medicine; Visit Provider Internal Medicine
DX: E78.00 Pure hypercholesterolemia, unspecified (principal); J45.909 Unspecified asthma, uncomplicated; M16.0 Bilateral primary osteoarthritis of hip; D64.9 Anemia, unspecified; F41.1 Generalized anxiety disorder; R03.0 Elevated blood-pressure reading, without diagnosis of hypertension; L30.9 Dermatitis, unspecified
CPT/HCPCS: 99214

== ENCOUNTER 2024-06-07 12:11 | Outpatient (REF) | payer OTHER, SELFPAY ==
[2024-06-07 12:38] LABS: MANUAL DIFF FLAG NO
[2024-06-07 12:47] LABS: Basophils Absolute Auto 0.1 X10*3/uL (0.0-0.2); Basophils Percent Auto 0.6 % (0-2); Eosinophils Percent Auto 0.4 % (0-4); Hematocrit 42.6 % (42.0-52.0); Hemoglobin 14.3 g/dl (14.0-18.0); Imm Gran Abs Auto 0.02 X10*3/uL (0.00-0.03); Imm Gran Pct Auto 0.2 % (0.0-0.4); Lymphocytes Absolute Auto 2.1 X10*3/uL (1.2-4.9); Lymphocytes Percent Auto 20.7 % (20-40); Mean Corpuscular HGB Conc 33.6 g/dl (31.0-36.0); Mean Corpuscular Hemoglobin 32.1 pg (27.0-33.0); Mean Corpuscular Volume 95.5 fL (80.0-98.0); Mean Platelet Volume 9.3 fL (9.4-12.4); Monocytes Absolute Auto 0.7 X10*3/uL (0.1-1.2); Monocytes Percent Auto 7.5 % (2-11); Neutrophils Percent Auto 70.6 % (45-73); Platelet Count 405 X10*3/uL (160-400); Red Blood Count 4.46 X10*6/uL (4.60-5.80); Red Cell Distribution Width 13.1 % (11.0-16.0); Retic HGB Equivalent 35.5 pg (30.0-35.0); Reticulocyte Percent 1.9 % (0.5-1.8); Reticulocytes Absolute 0.083 X10*6/uL (0.026-0.095); White Blood Count 9.9 X10*3/uL (4.8-10.8)
[2024-06-07 13:15] LABS: Cholesterol 186 mg/dL (<200); HDL Cholesterol 48 mg/dL (>40); Iron 122 mcg/dL (45-160); LDL Cholesterol Calculated 106 mg/dL (<100); Percent Iron Saturation 38 % (15-50); Total Iron Binding Capacity 324 mcg/dL (228-428); Triglycerides 163 mg/dL (<150); Unsaturated Iron Binding 202 ug/dL
[2024-06-07 13:32] LABS: Ferritin 222 ng/mL (20-250); Free T4 (Free Thyroxine) 1.02 ng/dL (0.71-1.85)
[2024-06-07 13:47] LABS: Folate 16.9 ng/mL (> or = 4.0); Vitamin B12 542 pg/mL (200-900)
== END 2024-06-07 12:12 | disposition home or self-care (01) ==
LOC: HO.LAB 12:11
PROVIDERS: PCP Internal Medicine; Visit Provider Internal Medicine
DX: D64.9 Anemia, unspecified (principal); E78.00 Pure hypercholesterolemia, unspecified
CPT/HCPCS: 36415; 80061; 82607; 82728; 82746; 83540; 84439; 84443; 85025; 85045

== ENCOUNTER 2024-09-12 15:39 | Outpatient (AMB) | payer OTHER, SELFPAY ==
[2024-09-12 16:34] VITALS: BP 158/74; PULSE 58; RESP 18; TEMP 36.5; O2SAT 98; BMI 27.8
--- NOTE | 2024-09-12 16:34 | A.OFFPC_ITS ---
Vital Signs 09/12/24 16:34 Height 4 ft 11 in Weight 137 lb 9.6 oz BMI 27.8 BP 158/74 H Blood Pressure Location Lt brachial Position Sitting Respiration 18 Pulse 58 Pulse Source Pulse Oximeter Temp 97.7 F Temp Source Temporal Artery Scan Pulse Oximetry (%) 98 Oxygen Delivery Method Room Air Intake Visit Reasons: Annual pe Tire Bagger Required: No Accompanied by: Self / Same As Patient Allergies doxycycline [DOXYCYCLINE] Allergy (Unknown, Verified 09/12/24 16:40) SWELLING Penicillins [PENICILLINS] Allergy (Unknown, Verified 09/12/24 16:40) RASH Sulfa (Sulfonamide Antibiotics) [SULFA(SULFONAMIDE ANTIBIOTICS)] Allergy (Unknown, Verified 09/12/24 16:40) RASH sulfacetamide [From Sulfacet-R] Allergy (Unknown, Verified 09/12/24 16:40) unknown sulfur [From Sulfacet-R] Allergy (Unknown, Verified 09/12/24 16:40) unknown Medication List - Last Reconciled 09/12/24 by Arsalan Almonte MD albuterol sulfate 90 mcg/actuation 2 puffs inhalation Q4-6H PRN betamethasone dipropionate 0.05% 1 appl topical DAILY PRN ciclopirox 1% topical fluoxetine 40 mg (2 x 20 mg) PO DAILY lorazepam (Ativan) 0.5 mg PO DAILY PRN 90 days metronidazole 0.75% 1 appl topical BEDTIME multivitamin 1 tab PO DAILY simvastatin 40 mg PO DAILY Tobacco use date assessed: 09/12/24 Fall risk assessment: No Falls in past year Last assessed Fall Risk: 09/12/24 Dental Screening Dental Screen Date: 09/12/24 Did you have a dental visit in the last 12 months?: Yes Did you have a dental problem in the last 6 months where you did not have access to dental care?: No Was dental information given to patient?: Patient has dentist [facility] Medical History (Updated 09/12/24 @ 17:21 by Arsalan Almonte MD) Hypertension 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 Mother No problems noted. Social History Housing: House Alcohol intake: never Patient Tobacco Use Status: Never used Tobacco e-Cigarette/Vaping Use: Never Used Second Hand Smoke Exposure: No service: No Current occupational status: retired Cognitive needs: No Hearing needs: No Vision needs: Yes (Glasses) Questionnaire PHQ-9 Over the last 2 weeks, how often have you been bothered by any of the following problems? 1. Little interest or pleasure in doing things: not at all 2. Feeling down, depressed, or hopeless: not at all 3. Trouble falling or staying asleep, or sleeping too much: not at all 4. Feeling tired or having little energy: not at all 5. Poor appetite or overeating: not at all 6. Feeling bad about yourself - or that you are a failure or have let yourself or your family down: not at all 7. Trouble concentrating on things, such as reading the newspaper or watching television: not at all 8. Moving or speaking so slowly that other people could have noticed. Or the opposite - being so fidgety or restless that you have been moving around a lot more than usual: not at all 9. Thoughts that you would be better off or of hurting yourself in some way: not at all Total score: 0 Source: Developed by Drs. Wilfred Olivares, Odalys Roca, Cali Rothman and colleagues, with an educational natalie from [employer]. Thrive Questionnaire Date Thrive assessed: 09/12/24 I am a: Patient What is your living situation today?: I have a steady place to live Within the past 12 months, did the food you bought not last and you didn't have the money to get more?: Never true Within the past 12 months, did you worry whether your food would run out before you got money to buy more?: Never true Do you have trouble paying for medicines?: No Do you have trouble getting transportation to medical appointments?: No Do you have trouble paying your heating and electricity bill?: No Do you have trouble taking care of your child, family member or friend?: No Do you have trouble with day-to-day activities such as bathing, preparing meals, shopping, managing finances, etc.?: No Are you currently unemployed and looking for a job?: No Are you interested in more education?: No Please select the resources that you would like help with: None Currently or been in a relationship where the following occur: No concerns reported THRIVE Score: 0 AUDIT C Alcohol Use Questionnaire (AUDIT-C) 1. How often do you have a drink containing alcohol?: Never 3. How often do you have six or more drinks on one occasion?: Never Total Score: 0 Score Reviewed/Action Taken: No BROOKE-7 AMB Questionnaire BROOKE-7 Date BROOKE - 7 assessed: 06/09/23 Source: Developed by Drs. Wilfred Olivares, Odalys Roca, Cali Rothman and colleagues, with an educational natalie from [employer]. Review of Systems Const Denies poor appetite and Denies weakness Eyes Denies no additional complaints ENT Reports Normal hearing present, Denies dizziness, Denies nasal congestion, Denies tinnitus and Denies sore throat Card Denies chest pain, Denies syncope, Denies rapid heart rate and Denies dyspnea Resp Denies cough and Denies dyspnea GI Denies change in stool character, Reports constipation, Denies diarrhea, Denies nausea and Denies vomiting Denies dysuria and Denies urinary frequency Neuro Reports Normal hearing present, Denies confusion, Denies dizziness, Denies syncope and Denies weakness Psych Denies confusion Physical exam (Primary Care) Vital Signs: Last Vital Signs Temp 97.7 F 09/12/24 16:34 Pulse 58 09/12/24 16:34 Resp 18 09/12/24 16:34 BP 158/74 H 09/12/24 16:34 Pulse Ox 98 09/12/24 16:34 Oxygen Delivery Method Room Air 09/12/24 16:34 BMI result Body Mass Index 27.8 Tobacco/Smoking Status: Tobacco use Status Tobacco use date assessed 09/12/24 09/12/24 16:53 Patient Tobacco Use Status Never used Tobacco 09/12/24 16:53 e-Cigarette/Vaping Use Never Used 09/12/24 16:53 PHQ-9: PHQ-9 Score PHQ-9: Total score 0 09/12/24 17:00 Thrive Assessment: Date of Thrive Assessment Date Thrive assessed 09/12/24 09/12/24 16:53 Currently or been in a relationship where the following occur: No concerns reported Const General: No confusion Orientation/consciousness: No confusion HENMT Other: impacted cerumen bilateral Head: Yes normocephalic Ears: external ears normal Face and sinus: Yes normal facial exam Mouth: moist mucous membranes Throat: Yes tonsils normal Eyes Conjunctivae: conjunctivae normal Pupils: Equal, round and reactive pupils present and Pupil accommodation reflex normal Direct Ophthalmoscopy: normal light reflex Neck Neck: No lymphadenopathy Thyroid: Thyroid normal Chest Chest palpation & inspection: normal inspection of the chest Resp Effort & Inspection: normal respiratory effort and no audible wheezes Auscultation: clear to auscultation bilaterally, no crackles, no wheezes and lung sounds not diminished Cardio Rate: regular rate Rhythm: regular rhythm Peripheral pulses: radial pulses present and dorsalis pedis present GI Other: guaaic negative , prostate enlarged Palpation (GI): no masses Auscultation: normal bowel sounds and normoactive bowel sounds Male General Exam: Yes normal external exam Skin General skin exam: no rashes or lesions noted Rashes: no rashes Neuro General: No confusion Cranial nerves: Yes Equal, round and reactive pupils present and Yes Normal hearing present Cognition (Neuro): normal cognition Gait exam (Neuro): Normal gait present Motor exam (neuro): 5/5 motor strength present throughout Deep tendon reflexes (DTR's): Right brachioradialis reflex intensity grade: 2+, Left brachioradialis reflex intensity grade: 2+, Right patellar reflex intensity grade: 2+ and Left patellar reflex intensity grade: 2+ Extrem General: No edema Office Procedures Cerumen Removal From which ear canal was the cerumen removed: bilateral Removal: cerumen loop/spoon Notes: patient tolerated procedure well, no complications and ear canal clear [id number] Wax Removal by Spoon/Curette Coding Level of Care Code Est Pt Prev Care >65y(54275) Diagnoses Annual physical exam Z00.00 Asthma J45.909 Overweight (BMI 25.0-29.9) E66.3 Hypercholesterolemia E78.00 Generalized anxiety disorder F41.1 White coat syndrome with high blood pressure but without hypertension R03.0 Impacted cerumen of both ears H61.23 CPT Codes Office Procedure - CPT: 91152-Pfn Wax Removal by Spoon/Curette ([id number]) Assessment & Plan Assessment & Plan (1) Annual physical exam: Code(s): Z00.00 - Encounter for general adult medical examination without abnormal findings Category: Medical Plan: Patient is advised to eat healthy, keep well hydrated, keep active and have adequate sleep. (2) Asthma: Code(s): J45.909 - Unspecified asthma, uncomplicated Category: Medical Plan: On albuterol inhaler as needed (3) Overweight (BMI 25.0-29.9): Code(s): E66.3 - Overweight Category: Medical Plan: Continue with diet and exercise (4) Hypercholesterolemia: Code(s): E78.00 - Pure hypercholesterolemia, unspecified Category: Medical Plan: Avoid fried foods, chicken skin, eggs, butter margarine, pastries and meat. Be it pork or beef they have a lot of cholesterol patient is on simvastatin 40 mg once a day (5) Generalized anxiety disorder: Code(s): F41.1 - Generalized anxiety disorder Category: Medical Plan: Continue with Ativan as needed on fluoxetine 40 mg once a day (6) White coat syndrome with high blood pressure but without hypertension: Code(s): R03.0 - Elevated blood-pressure reading, without diagnosis of hypertension Category: Medical Plan: Continuing to monitor (7) Impacted cerumen of both ears: Code(s): H61.23 - Impacted cerumen, bilateral Category: Medical Plan: scoop , no irrigation done TM intact Plan History of Present Illness The patient is an 83-year-old male presenting for an annual physical examination. His medical history is notable for conditions such as hypercholesterolemia, a controlled with an LDL of 106 mg/dL under a goal of less than 130 mg/dL and treated with simvastatin; asthma, managed with an as-needed albuterol inhaler; and anxiety, notably with white coat syndrome. His language reflects understanding of mild thrombocytosis observed in a recent blood test and concerns around previously noted low-grade anemia possibly associated with medications. The patient was reassured after reviewing May 2024 blood work, which was normal. Scoliosis and three-segment lumbar degenerative disc disease were acknowledged, with no surgical intervention or significant symptoms reported. There is a history of successful bilateral total hip replacements and a surgically managed hernia. The patient is compliant with recommended dietary and exercise regimens within his health maintenance plan. Health Maintenance - Cholesterol management with simvastatin 40 mg once daily. - Regular monitoring of blood work, including blood count and specific lab results. - Bowel movement and hydration guidance. - Advice against lifting over 20 pounds to prevent back exacerbation. - Regular eye examinations; last conducted six months ago, indicating no need for cataract surgery yet. - Hearing and visual assessments normal in compliance with previous screenings. - Prostate monitoring acknowledging benign hypertrophy. Social History - Avoids watching TV programs causing stress or anxiety. - Reports practicing relaxation techniques like deep breathing to manage anxiety. - Consumes multivitamins and acknowledges dietary improvements by increasing water intake. - Avoids lifting heavy weights due to degenerative disc disease. Review of Systems - Constitutional: Denies changes in weight and general wellbeing. - Eyes: Normal, denies vision changes. - Respiratory: Reports asthma, denies respiratory distress or chronic cough. - Cardiovascular: Denies chest pain or palpitations. - Gastrointestinal: Denies changes in bowel movements or regularity. - Genitourinary: Denies nocturia, urinary frequency, or hematuria. - Musculoskeletal: Reports degenerative disc disease; denies new pain. - Neurologic: Denies sensation concerns or numbness. - Psychiatric: Reports anxiety, especially with white coat syndrome. Physical Exam General: Cooperative, healthy appearing, comfortable, no acute distress and well developed Orientation: Patient oriented x3 Limitations: No limitations Head: Normal to inspection Ears: Hearing grossly normal bilaterally, some ear wax blocking noted Nose: Normal external nose present Face and sinus: Normal facial exam Eyes: Appearance normal, both eyes and all related structures Neck: Normal visual inspection and Yes full ROM Respiratory: Normal respiratory effort and able to speak in complete sentences. Clear to auscultation bilaterally Cardiovascular: Regular rate and rhythm. Normal S1 and S2 GI: Normal to inspection. Soft to palpation and nontender Skin: No rashes or lesions noted Neuro: Patient oriented x3 Extremities: Normal to inspection Results - Labs: Normal blood count (May 2024); mild thrombocytosis observed. Plan For chronic management, continue simvastatin and fluoxetine, acknowledging the benefits in managing cholesterol and anxiety respectively. The patient should use the albuterol inhaler on an as-needed basis. Attention to white coat syndrome includes applying known relaxation techniques. Proper ear hygiene is advised by eliminating the use of Q-tips. Monitoring plans include biannual blood work, ongoing assessment of asthma control, and periodic prostate evaluation consistent with symptoms. Health maintenance efforts will persist using routine preventive screenings and patient-compliance strategies with current health regimens. Patient was informed and verbally consented to the use of an ambient scribe for clinic note documentation during this visit. Discussion Notes I discussed the ongoing management of hypercholesterolemia with the patient, confirming the continued use of simvastatin 40 mg daily as effective. We reviewed the role of fluoxetine in controlling anxiety and why ceasing it due to concerns about low-grade anemia may not currently be warranted given stable blood test results. Addressing lumbar degenerative disc disease, I assured the patient no surgical intervention was necessary given current symptom stability. White coat syndrome was talked over, emphasizing relaxation techniques like deep breathing to mitigate symptoms. We spoke about maintaining proper nutrition, weight, and hydration, as part of ongoing health maintenance. I recommended obtaining blood work every six months and attending regular preventive screenings. Finally, we reinforced patient education on the avoidance of Q-tips for ear cleaning and clarified possible prostate enlargement expected monitoring without immediate intervention. Patient Instructions - Continue taking simvastatin 40 mg once daily for cholesterol management. - Use your albuterol inhaler as needed for any asthma symptoms. - Keep taking fluoxetine 40 mg daily; it helps with anxiety. - Do not use Q-tips in your ears?this can push wax further in. - Practice deep breathing exercises to help with white coat syndrome. - Follow your current diet and exercise plan. - Schedule and complete biannual blood work as planned. - Call our office if you experience any new symptoms or changes in your health. Orders: Orders Complete Blood Count Auto Diff 6 Months E78.00 - Pure hypercholesterolemia, unspecified Ferritin 6 Months E78.00 - Pure hypercholesterolemia, unspecified IRON PROFILE 6 Months E78.00 - Pure hypercholesterolemia, unspecified Vitamin B12 and Folate 6 Months E78.00 - Pure hypercholesterolemia, unspecified Comprehensive Met. Panel 6 Months E78.00 - Pure hypercholesterolemia, unspecified Free T4 (Free Thyroxine) 6 Months E78.00 - Pure hypercholesterolemia, unspecifi ed Reticulocyte Count 6 Months E78.00 - Pure hypercholesterolemia, unspecified Lipid Panel 6 Months E78.00 - Pure hypercholesterolemia, unspecified Thyroid Stimulating Hormone 6 Months E78.00 - Pure hypercholesterolemia, unspecified
== END 2024-09-12 17:29 | disposition home or self-care (01) ==
LOC: HO.HMCH 15:40
PROVIDERS: PCP Internal Medicine; Visit Provider Internal Medicine
DX: Z00.00 Encounter for general adult medical examination without abnormal findings (principal); J45.909 Unspecified asthma, uncomplicated; E66.3 Overweight; E78.00 Pure hypercholesterolemia, unspecified; F41.1 Generalized anxiety disorder; R03.0 Elevated blood-pressure reading, without diagnosis of hypertension; H61.23 Impacted cerumen, bilateral

== ENCOUNTER → 2024-09-12 15:39 | Outpatient (BNVA) | payer OTHER, SELFPAY | PROVIDERS: PCP Internal Medicine; Visit Provider Internal Medicine | DX: Z00.00 Encounter for general adult medical examination without abnormal findings (principal); J45.909 Unspecified asthma, uncomplicated; E66.3 Overweight; Z68.27 Body mass index [BMI] 27.0-27.9, adult; E78.00 Pure hypercholesterolemia, unspecified; F41.1 Generalized anxiety disorder; R03.0 Elevated blood-pressure reading, without diagnosis of hypertension; H61.23 Impacted cerumen, bilateral; Z79.899 Other long term (current) drug therapy | CPT/HCPCS: 69210; 96127 ==